=== PATIENT | male | born 1965 | race Caucasian/White ===

== ENCOUNTER 2018-03-30 02:19 | Emergency (ER) | payer OTHER ==
[~2018-03-30] VITALS: Ht 172.7 cm; Wt 80.7 kg
[2018-03-30 02:25] VITALS: Ht 172.7 cm; Wt 80.7 kg
[2018-03-30 03:29] VITALS: BP 152/94
== END 2018-03-30 03:30 | disposition home or self-care (01) ==
LOC: ED 02:19
DX: S60.221A Contusion of right hand, initial encounter (principal); S61.452A Open bite of left hand, initial encounter; Y04.0XXA Assault by unarmed brawl or fight, initial encounter; Y93.89 Activity, other specified; Y92.89 Other specified places as the place of occurrence of the external cause; Y99.8 Other external cause status
CPT/HCPCS: 90715; A4570